=== PATIENT | female | born 1970 | race Caucasian/White ===

== ENCOUNTER 2017-01-13 13:13 | Emergency (ER) | payer BC ==
[2017-01-13 15:50] LABS: BASOPHIL % 0.5 % (0-2); PLATELET COUNT 280 x10^3mcL (130-400); RED CELL DISTRIBUTION WIDTH 12.3 % (11.5-14.5)
[2017-01-13 15:51] LABS: microscopic required? NO
[2017-01-13 16:05] LABS: UA SPECIFIC GRAVITY <=1.005 (1.005-1.035); urine erythrocyte NEGATIVE (NEGATIVE)
[2017-01-13 16:16] LABS: ALKALINE PHOSPHATASE 77 U/L (46-116); ALT/SGPT 36 U/L (14-59); AST/SGOT 24 U/L (15-37); BILIRUBIN TOTAL 0.6 mg/dL (0.20-1.00); CHLORIDE SERUM 100 mmol/L (98-107); CREATININE SERUM 0.7 mg/dL (0.6-1.0); GFR1 > 60 mL/min; GLUCOSE SERUM 98 mg/dL (74-106); LIPASE 125 IU/L (73-393); POTASSIUM SERUM 3.9 mmol/L (3.5-5.1); SODIUM SERUM 137 mmol/L (136-145); TOTAL PROTEIN, SERUM 7.8 g/dL (6.4-8.2); TRIGLYCERIDES 164 mg/dL (<150)
[2017-01-13 16:20] LABS: CHOLESTEROL 241 mg/dL (<200); CHOLESTEROL/HDL RATIO 2.9; HDL CHOLESTEROL 83 mg/dL (40-60)
[2017-01-13 16:24] LABS: CALCIUM 8.7 mg/dL (8.5-10.1)
[2017-01-13 16:45] LABS: T3 TOTAL 1.1 ng/mL
[2017-01-13 16:51] LABS: FREE T4 0.81 ng/dL (0.76-1.46); T4(THYROXINE) 6.3 ug/dL (4.7-13.3)
[2017-01-13 18:55] VITALS: BP 136/88
== END 2017-01-13 19:10 | disposition left against medical advice (07) ==
LOC: ED 13:13
PROVIDERS: Specialist
DX: R07.9 Chest pain, unspecified (principal); R06.02 Shortness of breath; R11.0 Nausea; F41.9 Anxiety disorder, unspecified; G47.00 Insomnia, unspecified
CPT/HCPCS: 83880; 84439; J7030